=== PATIENT | male | born 2000 | race Caucasian/White ===

== ENCOUNTER 2023-06-28 12:30 | Emergency (ER) | payer BC, OTHER ==
[2023-06-28 12:50] VITALS: RESP 16; TEMP 97.6
--- NOTE | 2023-06-28 13:04 | ERPHSYRPT ---
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 Pain is 6/10 and worse w movement. He denies other injuries at this time. Tdap is UTD. Occurred: just prior to arrival Method of Injury: direct blow Quality: constant Severity of Pain-Max: severe Severity of Pain-Current: moderate Extremities Pain Location: shoulder: left Modifying Factors: Improves With: movement Associated Symptoms: none Allergies/Adverse Reactions: cefaclor [From Ceclor] Allergy (Verified 06/28/23 12:47) Home Medications: No Home Meds [No Home Meds] 1 ea UD 08/03/16 [History] Hx Tetanus, Diphtheria Vaccination/Date Given: Yes Hx Influenza Vaccination/Date Given: No Hx Pneumococcal Vaccination/Date Given: No Immunizations Up to Date: Yes Travel Risk - International Travel Have you traveled outside of the country in past 3 weeks: No - Coronavirus Screening Are you exhibiting any of the following symptoms?: No Close contact with a COVID-19 positive Pt in past 14-21 Days: No - Vaccine Status Have you recieved a Covid-19 vaccination: No - Review of Systems Constitutional: No Symptoms Eyes: No Symptoms Ears, Nose, & Throat: No Symptoms Respiratory: No Symptoms Cardiac: No Symptoms Abdominal/Gastrointestinal: No Symptoms Genitourinary Symptoms: No Symptoms Skin: No Symptoms Neurological: No Symptoms Psychological: No Symptoms Endocrine: No Symptoms Hematologic/Lymphatic: No Symptoms Immunological/Allergic: No Symptoms - Past Medical History Pertinent Past Medical History: No Respiratory History: Asthma Other Medical History: possible slight dislocation of right shoulder - Past Surgical History Past Surgical History: Yes Other Surgical History: ear tubes as as child - Social History Smoking Status: Never smoker Exposure to second hand smoke: No Drug Use: none Patient Lives Alone: No - Nursing Vital Signs Nursing Vital Signs: Initial Vital Signs Temperature 97.6 F 06/28/23 12:35 Pulse Rate 60 06/28/23 12:35 Respiratory Rate 16 06/28/23 12:35 Blood Pressure 122/84 06/28/23 12:35 O2 Sat by Pulse Oximetry 98 06/28/23 12:35 Pain Scale Pain Intensity 6 WNL - Physical Exam General Appearance: no apparent distress Eyes, Ears, Nose, Throat Exam: normal ENT inspection, TMs normal, pharynx normal, moist mucous membranes Neck Exam: normal inspection, non-tender, supple, full range of motion, other (C-spine NTTP), No Brudzinski, No Kernig's, No meningismus Cardiovascular/Respiratory Exam: chest non-tender, normal breath sounds, regular rate/rhythm, heart sounds normal Abdominal Exam: non-tender, soft Back Exam: normal inspection, normal range of motion, No CVA tenderness, No vertebral tenderness Shoulder Exam: bone tenderness (L shoulder TTP superiorly/small abrasion/Mild edema/Good radial pulse, distal sensation, and capillary return) Elbow/Forearm Exam: normal inspection Wrist Exam: normal inspection Hand Exam: normal inspection DTR - Upper Extremity Exam: bicep (R): 2+, bicep (L): 2+ Neuro/Tendon Exam: normal sensation, normal motor functions, normal tendon functions, responds to pain, no evidence tendon injury, No motor deficit, No sensory deficit Mental Status Exam: alert, oriented x 3, cooperative Skin Exam: normal color, warm, dry SpO2 Interpretation: normal SpO2: 98 O2 Delivery: Room Air - Course Nursing assessment & vital signs reviewed: Yes - Radiology Exams Shoulder X-ray Interpretation: Interpreted by me (L shoulder neg per ER read) Ordered Tests: Active Orders 24 hr Category Date Time Status Cold Application STAT Care 06/28/23 12:41 Active Sling Application STAT Care 06/28/23 13:13 Active SHOULDER Stat Exams 06/28/23 12:41 Taken SHOULDER Stat Exams 06/28/23 13:16 Taken Urine Triage Profile Stat Lab 06/28/23 13:38 Ordered - Progress Progress Note: 06/28/23 13:42 Nursing note and vital signs reviewed No food or housing insecurities noted Additional history per /co-worker Sling LUE per nursing/NVI Pt refused pain meds during entire stay Pt refused work excuse at this time and intends to return on Friday06/28/23 06/28/23 13:45 UDS collected per company passenger relations representative for workman's comp Counseled pt/family regarding: diagnosis, need for follow-up, rad results Medical Desision Making - Independent Historian Additional History obtained from: Spouse - Risk of complications Low Risk: Low risk of morbidity from additional dx testing or treatment - Departure Departure Disposition: Home Clinical Impression: Contusion of left shoulder Condition: Stable Critical Care Time: No Referrals: JOSSELIN MARTINEZ NP [Primary Care Provider] - Follow up/PCP as directed Instructions: Contusion (DC) Additional Instructions: Ice for 12-24 hours Motrin/Tylenol for pain Sling for 1-2 days Use of left arm as tolerated Follow up with company MD or family MD for continued pain
--- NOTE | 2023-06-28 13:56 | XRAY ---
CLINICAL HISTORY:rock fell on top of left shoulder COMPARISON:None TECHNIQUE:AP internal/external and Y view of left shoulder. FINDINGS: Articular surfaces show no degeneration. No lytic or sclerotic bony lesion was noted. Normal bone density. Normal soft tissue densities. No fracture seen. No dislocation noted. IMPRESSION: Unremarkable x ray left shoulder. DISCLAIMER:A subtle bone abnormality or fracture may not be readily apparent on x-rays, thus clinical correlation and further imaging including follow up CT, MRI, or follow up x-rays are advised as needed. Electronically Signed by: Diana Costa MD. (06/28/2023 12:54:25 [employer])
[2023-06-28 14:19] VITALS: BP 115/71; PULSE 64; O2SAT 97
[2023-06-28 14:51] LABS: Amphetamine,Urine NEGATIVE (NEGATIVE); Barbiturate,Urine NEGATIVE (NEGATIVE); Benzodiazepine,Urine NEGATIVE (NEGATIVE); Cocaine,Urine NEGATIVE (NEGATIVE); Methadone,Urine NEGATIVE (NEGATIVE); Opiate,Urine NEGATIVE (NEGATIVE); PCP,Urine NEGATIVE (NEGATIVE); THC,Urine NEGATIVE (NEGATIVE)
--- NOTE | 2023-06-28 20:52 | XRAY ---
Indication: Pain following injury. Comparison: Taken earlier in the day Single scapular Y-view left shoulder obtained. Again no bony, articular, or soft tissue abnormalities.
== END 2023-06-28 14:17 | disposition home or self-care (01) ==
LOC: ED 12:30
DX: S40.012A Contusion of left shoulder, initial encounter (principal); W20.8XXA Other cause of strike by thrown, projected or falling object, initial encounter; Y92.64 Mine or pit as the place of occurrence of the external cause; Y99.0 Civilian activity done for income or pay; Z28.310 Unvaccinated for COVID-19
CPT/HCPCS: 73030; 80307; 99283